=== PATIENT | male | born 1945 | race Caucasian/White ===

== ENCOUNTER 2018-02-25 09:27 | Inpatient (IN) | payer OTHER, MEDICAID ==
[~2018-02-25] VITALS: Ht 152.4 cm; Wt 61.0 kg
[2018-02-25 10:03] LABS: BASOPHILS % (AUTO) 1.5 % (0.0-2.0); EOSINOPHILS % (AUTO) 1.1 % (1.0-6.0); HEMATOCRIT 41.2 % (41-53); HEMOGLOBIN 14.1 g/dL (13.5-17.5); LYMPHOCYTES % (AUTO) 14.5 % (22.0-44.0); MEAN CORPUSCULAR HEMOGLOBIN 32.2 pg (26.0-34.0); MEAN CORPUSCULAR HGB CONC 34.1 G/dL (31.0-37.0); MEAN CORPUSCULAR VOLUME 94 fL (80-100); MONOCYTES # (AUTO) 0.7 K/uL (0.1-1.0); MONOCYTES % (AUTO) 9.5 % (2.0-9.0); NEUTROPHILS # (AUTO) 5.3 K/uL (1.8-7.7); NEUTROPHILS % (AUTO) 73.4 % (40.0-70.0); PLATELET COUNT (AUTO) 106 K/uL (150-450); RED BLOOD CELL COUNT(AUTO) 4.37 MIL/uL (4.50-5.90); RED CELL DISTRIBUTION WIDTH 15.3 % (11.5-14.5)
[2018-02-25 10:09] LABS: ANION GAP 8 mmol/L (8-16); CALCIUM, TOTAL 8.8 mg/dL (8.8-10.5); CARBON DIOXIDE 27 mmol/L (22-29); CHLORIDE 109 mmol/L (98-107); CREATININE 0.92 mg/dL (0.60-1.30); GLOMERULAR FILTR. RATE CALC > 60 mL/min (>60); GLUCOSE,RANDOM 116 mg/dL (70-110); POTASSIUM 3.9 mmol/L (3.5-5.1); SODIUM SERUM 144 mmol/L (136-145); UREA NITROGEN, BLOOD 9 mg/dL (7-18)
[2018-02-25 10:15] LABS: ALANINE AMINOTRANSFERASE 20 U/L (12-78); ALBUMIN 3.6 g/dL (3.4-5.0); ALKALINE PHOSPHATASE 84 U/L (46-116); ASPARTATE AMINOTRANSFERASE 20 U/L (15-37); BILIRUBIN,TOTAL 0.7 mg/dL (0.1-1.0)
[2018-02-25 10:29] LABS: PLATELET MORPHOLOGY COMMENT GIANT PLTS PRESENT
[2018-02-25] MEDS: PERTUSS(ACELL),DIPH,TET VAC/PF 0.5 ML VIAL IM ONE ×3 (10:37→17:25)
[2018-02-25 11:07] LABS: AMPHET/METH SCREEN,URINE NEGATIVE (NEGATIVE); BARBITURATE SCREEN, URINE NEGATIVE (NEGATIVE); BENZODIAZEPINES SCREEN,URINE NEGATIVE (NEGATIVE); CANNABINOID SCREEN,URINE POSITIVE (NEGATIVE); COCAINE SCREEN,URINE NEGATIVE (NEGATIVE); METHADONE SCREEN, URINE NEGATIVE (NEGATIVE); OPIATE SCREEN,URINE NEGATIVE (NEGATIVE); PHENCYCLIDINE SCREEN,URINE NEGATIVE (NEGATIVE)
[2018-02-25] MEDS ORDERED: SIMV-260 PO (12:18)
[2018-02-25] MEDS ORDERED: HYDR25TA PO (12:18)
[2018-02-25] MEDS ORDERED: ZOLPIDEM TARTRATE 10 MG TABLET PO PRN (12:30)
[2018-02-25] MEDS: LORazepam 2 MG TABLET PO PRN (17:02)
[2018-02-25] MEDS: HALOPERIDOL 5 MG TABLET PO PRN (17:02)
[2018-02-25] MEDS ORDERED: BACITRACIN 0.9 GM PACKET OINTMENT TP ONE (17:19)
[2018-02-25 18:47] VITALS: BP 166/80
[2018-02-25] MEDS ORDERED: PETROLATUM,WHITE 71 GM JELLY TP PRN (19:00)
[2018-02-25] MEDS ORDERED: MAGNESIUM HYDROXIDE SUSPENSION 30 ML UDCUP PO PRN (19:00)
[2018-02-25] MEDS ORDERED: LOPERAMIDE HCL 2 MG CAPSULE PO PRN (19:00)
[2018-02-25] MEDS ORDERED: MAG HYDROX/AL HYDROX/SIMETH ES 30 ML SUSPENSION UDCUP PO PRN (19:00)
[2018-02-25] MEDS ORDERED: NICOTINE 21 MG/24 HOUR PATCH TD PRN (19:00)
[2018-02-25] MEDS ORDERED: ACETAMINOPHEN 325 MG TABLET PO PRN (19:00)
[2018-02-25] MEDS ORDERED: BENZOCAINE/MENTHOL LOZENGE MM PRN (19:00)
[2018-02-25] MEDS ORDERED: ONDANSETRON HCL 4 MG TABLET PO PRN (19:00)
[2018-02-25] MEDS ORDERED: BACITRACIN 28.4 GM OINTMENT TP PRN (19:00)
[2018-02-25] MEDS ORDERED: IBUPROFEN 600 MG TABLET PO PRN (19:00)
[2018-02-25] MEDS ORDERED: ALBUTEROL SULFATE HFA 90 MCG/PUFF 8 GM INHALER IH PRN (19:00)
[2018-02-25] MEDS ORDERED: PNEUMOCOCCAL VACCINE POLYVALENT 0.5 ML VIAL [PPSV23] IM ONE (20:15)
[2018-02-26 06:39] VITALS: BP 127/64
[2018-02-26 08:00] VITALS: BP 131/65
[2018-02-26] MEDS: DOCUSATE SODIUM 100 MG CAPSULE PO SCH (08:24)
[2018-02-26 08:36] LABS: BASOPHILS % (AUTO) 1.4 % (0.0-2.0); EOSINOPHILS % (AUTO) 0.6 % (1.0-6.0); HEMATOCRIT 35.4 % (41-53); HEMOGLOBIN 12.1 g/dL (13.5-17.5); LYMPHOCYTES # (AUTO) 1.5 K/uL (1.0-4.8); LYMPHOCYTES % (AUTO) 24.9 % (22.0-44.0); MEAN CORPUSCULAR HEMOGLOBIN 32.6 pg (26.0-34.0); MEAN CORPUSCULAR HGB CONC 34.2 G/dL (31.0-37.0); MEAN CORPUSCULAR VOLUME 95 fL (80-100); MONOCYTES # (AUTO) 0.5 K/uL (0.1-1.0); NEUTROPHILS # (AUTO) 3.7 K/uL (1.8-7.7); NEUTROPHILS % (AUTO) 64.1 % (40.0-70.0); PLATELET COUNT (AUTO) 91 K/uL (150-450); RED BLOOD CELL COUNT(AUTO) 3.72 MIL/uL (4.50-5.90); RED CELL DISTRIBUTION WIDTH 15.6 % (11.5-14.5)
[2018-02-26] MEDS ORDERED: OMEPRAZOLE 20 MG CAPSULE PO SCH (09:00)
[2018-02-26 09:12] LABS: ALANINE AMINOTRANSFERASE 15 U/L (12-78); ALKALINE PHOSPHATASE 76 U/L (46-116); ANION GAP 8 mmol/L (8-16); ASPARTATE AMINOTRANSFERASE 17 U/L (15-37); BILIRUBIN,TOTAL 0.8 mg/dL (0.1-1.0); CALCIUM, TOTAL 8.4 mg/dL (8.8-10.5); CARBON DIOXIDE 27 mmol/L (22-29); CHLORIDE 108 mmol/L (98-107); CREATININE 0.69 mg/dL (0.60-1.30); GLOMERULAR FILTR. RATE CALC > 60 mL/min (>60); GLUCOSE,RANDOM 83 mg/dL (70-110); POTASSIUM 3.6 mmol/L (3.5-5.1); SODIUM SERUM 143 mmol/L (136-145); THYROID STIMULATING HORMONE 1.43 uIU/mL (0.36-3.74); UREA NITROGEN, BLOOD 13 mg/dL (7-18)
[2018-02-26] MEDS: BACITRACIN 28.4 GM OINTMENT TP SCH (10:11)
[2018-02-26] MEDS: QUEtiapine FUMARATE 25 MG TABLET PO SCH ×2 (11:37→16:13)
[2018-02-26 16:00] VITALS: BP 181/100
[2018-02-26] MEDS: CloNIDine HCL 0.1 MG TABLET PO PRN (16:13)
[2018-02-26 17:12] VITALS: BP 149/70
[2018-02-27 05:58] VITALS: BP 156/86
[2018-02-27 08:01] VITALS: BP 145/84
[2018-02-27] MEDS: QUEtiapine FUMARATE 25 MG TABLET PO SCH ×2 (08:05→16:49)
[2018-02-27] MEDS: SIMVASTATIN 10 MG TABLET PO SCH (08:05)
[2018-02-27] MEDS: HYDROCHLOROTHIAZIDE 25 MG TABLET PO SCH (08:06)
[2018-02-27] MEDS: DOCUSATE SODIUM 100 MG CAPSULE PO SCH (08:06)
[2018-02-27] MEDS: MULTIVITAMINS WITH MINERALS, THERAPEUTIC TABLET PO SCH (08:06)
[2018-02-27] MEDS: FAMOTIDINE 20 MG TABLET PO SCH (08:06)
[2018-02-27] MEDS: BACITRACIN 28.4 GM OINTMENT TP SCH (08:15)
[2018-02-27 10:23] LABS: CHOL/HDL RATIO 3.1 (4.2-7.3)
[2018-02-27 16:00] VITALS: BP 142/83
[2018-02-28 06:10] VITALS: BP 142/88
[2018-02-28 07:46] LABS: BASOPHILS % (AUTO) 2.2 % (0.0-2.0); EOSINOPHILS % (AUTO) 2.8 % (1.0-6.0); HEMATOCRIT 39.5 % (41-53); HEMOGLOBIN 13.3 g/dL (13.5-17.5); LYMPHOCYTES # (AUTO) 1.4 K/uL (1.0-4.8); LYMPHOCYTES % (AUTO) 24.2 % (22.0-44.0); MEAN CORPUSCULAR HEMOGLOBIN 32.3 pg (26.0-34.0); MEAN CORPUSCULAR HGB CONC 33.8 G/dL (31.0-37.0); MEAN CORPUSCULAR VOLUME 96 fL (80-100); MONOCYTES # (AUTO) 0.6 K/uL (0.1-1.0); MONOCYTES % (AUTO) 11.4 % (2.0-9.0); NEUTROPHILS # (AUTO) 3.3 K/uL (1.8-7.7); NEUTROPHILS % (AUTO) 59.4 % (40.0-70.0); PLATELET COUNT (AUTO) 108 K/uL (150-450); RED BLOOD CELL COUNT(AUTO) 4.13 MIL/uL (4.50-5.90); RED CELL DISTRIBUTION WIDTH 15.6 % (11.5-14.5)
[2018-02-28] MEDS: MULTIVITAMINS WITH MINERALS, THERAPEUTIC TABLET PO SCH (08:04)
[2018-02-28] MEDS: FAMOTIDINE 20 MG TABLET PO SCH (08:04)
[2018-02-28] MEDS: SIMVASTATIN 10 MG TABLET PO SCH (08:04)
[2018-02-28] MEDS: BACITRACIN 28.4 GM OINTMENT TP SCH (08:04)
[2018-02-28] MEDS: DOCUSATE SODIUM 100 MG CAPSULE PO SCH (08:04)
[2018-02-28] MEDS: HYDROCHLOROTHIAZIDE 25 MG TABLET PO SCH (08:04)
[2018-02-28] MEDS: QUEtiapine FUMARATE 25 MG TABLET PO SCH ×2 (08:04→16:02)
[2018-02-28 08:57] VITALS: BP 135/84
[2018-02-28 09:26] LABS: PLATELET MORPHOLOGY COMMENT GIANT PLTS PRESENT
[2018-02-28 16:00] VITALS: BP 130/69
[2018-03-01 01:05] VITALS: BP 151/97
[2018-03-01] MEDS: MULTIVITAMINS WITH MINERALS, THERAPEUTIC TABLET PO SCH (08:10)
[2018-03-01] MEDS: FAMOTIDINE 20 MG TABLET PO SCH (08:10)
[2018-03-01] MEDS: HYDROCHLOROTHIAZIDE 25 MG TABLET PO SCH (08:10)
[2018-03-01] MEDS: QUEtiapine FUMARATE 25 MG TABLET PO SCH ×2 (08:10→17:05)
[2018-03-01] MEDS: DOCUSATE SODIUM 100 MG CAPSULE PO SCH (08:10)
[2018-03-01] MEDS: SIMVASTATIN 10 MG TABLET PO SCH (08:10)
[2018-03-01] MEDS: BACITRACIN 28.4 GM OINTMENT TP SCH (08:58)
[2018-03-01 10:21] VITALS: BP 147/87
[2018-03-01 16:11] VITALS: BP 146/88
[2018-03-02 06:09] VITALS: BP 133/69
[2018-03-02 08:02] VITALS: BP 134/78
[2018-03-02] MEDS: HYDROCHLOROTHIAZIDE 25 MG TABLET PO SCH (08:52)
[2018-03-02] MEDS: MULTIVITAMINS WITH MINERALS, THERAPEUTIC TABLET PO SCH (08:52)
[2018-03-02] MEDS: SIMVASTATIN 10 MG TABLET PO SCH (08:52)
[2018-03-02] MEDS: FAMOTIDINE 20 MG TABLET PO SCH (08:52)
[2018-03-02] MEDS: DOCUSATE SODIUM 100 MG CAPSULE PO SCH (08:52)
[2018-03-02] MEDS: QUEtiapine FUMARATE 25 MG TABLET PO SCH ×2 (08:52→16:51)
[2018-03-02 16:50] VITALS: BP 150/93
[2018-03-03 00:46] VITALS: BP 139/92
[2018-03-03] MEDS: HYDROCHLOROTHIAZIDE 25 MG TABLET PO SCH (08:30)
[2018-03-03] MEDS: SIMVASTATIN 10 MG TABLET PO SCH (08:30)
[2018-03-03] MEDS: DOCUSATE SODIUM 100 MG CAPSULE PO SCH (08:30)
[2018-03-03] MEDS: MULTIVITAMINS WITH MINERALS, THERAPEUTIC TABLET PO SCH (08:30)
[2018-03-03] MEDS: QUEtiapine FUMARATE 25 MG TABLET PO SCH ×2 (08:30→16:45)
[2018-03-03] MEDS: FAMOTIDINE 20 MG TABLET PO SCH (08:30)
[2018-03-03 09:00] VITALS: BP 138/66
[2018-03-03 16:17] VITALS: BP 135/88
[2018-03-04 06:21] VITALS: BP 181/100
[2018-03-04] MEDS: CloNIDine HCL 0.1 MG TABLET PO PRN (06:28)
[2018-03-04 07:21] VITALS: BP 142/86
[2018-03-04] MEDS: QUEtiapine FUMARATE 25 MG TABLET PO SCH ×2 (08:45→17:11)
[2018-03-04] MEDS: MULTIVITAMINS WITH MINERALS, THERAPEUTIC TABLET PO SCH (08:45)
[2018-03-04] MEDS: SIMVASTATIN 10 MG TABLET PO SCH (08:46)
[2018-03-04] MEDS: FAMOTIDINE 20 MG TABLET PO SCH (08:46)
[2018-03-04] MEDS: HYDROCHLOROTHIAZIDE 25 MG TABLET PO SCH (08:46)
[2018-03-04] MEDS: DOCUSATE SODIUM 100 MG CAPSULE PO SCH (08:46)
[2018-03-04] MEDS: LISINOPRIL 10 MG TABLET PO SCH (09:17)
[2018-03-04 09:33] VITALS: BP 141/89
[2018-03-04 16:23] VITALS: BP 140/83
[2018-03-05 00:11] VITALS: BP 140/85
[2018-03-05 08:20] VITALS: BP 161/88
[2018-03-05] MEDS: MULTIVITAMINS WITH MINERALS, THERAPEUTIC TABLET PO SCH (08:20)
[2018-03-05] MEDS: FAMOTIDINE 20 MG TABLET PO SCH (08:20)
[2018-03-05] MEDS: HYDROCHLOROTHIAZIDE 25 MG TABLET PO SCH (08:20)
[2018-03-05] MEDS: LISINOPRIL 10 MG TABLET PO SCH (08:20)
[2018-03-05] MEDS: QUEtiapine FUMARATE 25 MG TABLET PO SCH ×2 (08:20→16:13)
[2018-03-05] MEDS: DOCUSATE SODIUM 100 MG CAPSULE PO SCH (08:20)
[2018-03-05] MEDS: SIMVASTATIN 10 MG TABLET PO SCH (08:20)
[2018-03-05 09:30] VITALS: BP 133/79
[2018-03-05 16:10] VITALS: BP 144/83
[2018-03-06 00:15] VITALS: BP 133/80
[2018-03-06 08:00] VITALS: BP 140/80
[2018-03-06] MEDS: LISINOPRIL 10 MG TABLET PO SCH (08:45)
[2018-03-06] MEDS: HYDROCHLOROTHIAZIDE 25 MG TABLET PO SCH (08:45)
[2018-03-06] MEDS: QUEtiapine FUMARATE 25 MG TABLET PO SCH ×2 (08:45→16:33)
[2018-03-06] MEDS: FAMOTIDINE 20 MG TABLET PO SCH (08:45)
[2018-03-06] MEDS: DOCUSATE SODIUM 100 MG CAPSULE PO SCH (08:45)
[2018-03-06] MEDS: MULTIVITAMINS WITH MINERALS, THERAPEUTIC TABLET PO SCH (08:45)
[2018-03-06] MEDS: SIMVASTATIN 10 MG TABLET PO SCH (08:45)
[2018-03-06 16:25] VITALS: BP 133/73
[2018-03-07 02:36] VITALS: BP 134/79
[2018-03-07 08:00] VITALS: BP 131/84
[2018-03-07] MEDS: FAMOTIDINE 20 MG TABLET PO SCH (08:18)
[2018-03-07] MEDS: DOCUSATE SODIUM 100 MG CAPSULE PO SCH (08:18)
[2018-03-07] MEDS: HYDROCHLOROTHIAZIDE 25 MG TABLET PO SCH (08:19)
[2018-03-07] MEDS: SIMVASTATIN 10 MG TABLET PO SCH (08:19)
[2018-03-07] MEDS: LISINOPRIL 10 MG TABLET PO SCH (08:19)
[2018-03-07] MEDS: QUEtiapine FUMARATE 25 MG TABLET PO SCH ×2 (08:19→16:18)
[2018-03-07] MEDS: MULTIVITAMINS WITH MINERALS, THERAPEUTIC TABLET PO SCH (08:19)
[2018-03-07] MEDS ORDERED: BACITRACIN 28.4 GM OINTMENT TP SCH (09:00)
[2018-03-07 16:03] VITALS: BP 124/72
[2018-03-07 23:57] VITALS: BP 180/99
[2018-03-08] MEDS: CloNIDine HCL 0.1 MG TABLET PO PRN (00:14)
[2018-03-08 01:14] VITALS: BP 129/70
[2018-03-08 08:22] VITALS: BP 134/83
[2018-03-08] MEDS: DOCUSATE SODIUM 100 MG CAPSULE PO SCH (08:57)
[2018-03-08] MEDS: FAMOTIDINE 20 MG TABLET PO SCH (08:57)
[2018-03-08] MEDS: MULTIVITAMINS WITH MINERALS, THERAPEUTIC TABLET PO SCH (08:57)
[2018-03-08] MEDS: LISINOPRIL 10 MG TABLET PO SCH (08:57)
[2018-03-08] MEDS: SIMVASTATIN 10 MG TABLET PO SCH (08:58)
[2018-03-08] MEDS: QUEtiapine FUMARATE 25 MG TABLET PO SCH ×2 (09:00→16:25)
[2018-03-08] MEDS: HYDROCHLOROTHIAZIDE 25 MG TABLET PO SCH (09:01)
[2018-03-08 16:26] VITALS: BP 121/78
[2018-03-09 00:14] VITALS: BP 110/71
[2018-03-09] MEDS: LORazepam 2 MG TABLET PO PRN (01:13)
[2018-03-09] MEDS: MULTIVITAMINS WITH MINERALS, THERAPEUTIC TABLET PO SCH (08:15)
[2018-03-09] MEDS: SIMVASTATIN 10 MG TABLET PO SCH (08:15)
[2018-03-09] MEDS: LISINOPRIL 10 MG TABLET PO SCH (08:15)
[2018-03-09] MEDS: QUEtiapine FUMARATE 25 MG TABLET PO SCH ×2 (08:15→16:24)
[2018-03-09] MEDS: HYDROCHLOROTHIAZIDE 25 MG TABLET PO SCH (08:15)
[2018-03-09] MEDS: FAMOTIDINE 20 MG TABLET PO SCH (08:15)
[2018-03-09] MEDS: DOCUSATE SODIUM 100 MG CAPSULE PO SCH (08:15)
[2018-03-09 08:26] VITALS: BP 138/83
[2018-03-09 16:19] VITALS: BP 140/84
[2018-03-10 00:04] VITALS: BP 148/85
[2018-03-10] MEDS: MULTIVITAMINS WITH MINERALS, THERAPEUTIC TABLET PO SCH (08:26)
[2018-03-10] MEDS: LISINOPRIL 10 MG TABLET PO SCH (08:26)
[2018-03-10] MEDS: SIMVASTATIN 10 MG TABLET PO SCH (08:26)
[2018-03-10] MEDS: FAMOTIDINE 20 MG TABLET PO SCH (08:26)
[2018-03-10] MEDS: QUEtiapine FUMARATE 25 MG TABLET PO SCH ×2 (08:26→17:02)
[2018-03-10] MEDS: HYDROCHLOROTHIAZIDE 25 MG TABLET PO SCH (08:26)
[2018-03-10] MEDS: DOCUSATE SODIUM 100 MG CAPSULE PO SCH (08:27)
[2018-03-10 08:31] VITALS: BP 146/83
[2018-03-10 10:30] VITALS: BP 107/70
[2018-03-10 16:18] VITALS: BP 128/80
[2018-03-11 00:04] VITALS: BP 131/74
[2018-03-11 08:45] VITALS: BP 123/77
[2018-03-11] MEDS: HALOPERIDOL 5 MG TABLET PO PRN (09:17)
[2018-03-11] MEDS: HYDROCHLOROTHIAZIDE 25 MG TABLET PO SCH (09:17)
[2018-03-11] MEDS: QUEtiapine FUMARATE 25 MG TABLET PO SCH ×2 (09:17→16:13)
[2018-03-11] MEDS: MULTIVITAMINS WITH MINERALS, THERAPEUTIC TABLET PO SCH (09:17)
[2018-03-11] MEDS: DOCUSATE SODIUM 100 MG CAPSULE PO SCH (09:17)
[2018-03-11] MEDS: LORazepam 2 MG TABLET PO PRN (09:18)
[2018-03-11] MEDS: SIMVASTATIN 10 MG TABLET PO SCH (09:18)
[2018-03-11] MEDS: LISINOPRIL 10 MG TABLET PO SCH (09:18)
[2018-03-11] MEDS: FAMOTIDINE 20 MG TABLET PO SCH (09:19)
[2018-03-11 16:04] VITALS: BP 129/77
[2018-03-11] MEDS ORDERED: BENZOCAINE/MENTHOL LOZENGE MM PRN (18:15)
[2018-03-12] MEDS: SIMVASTATIN 10 MG TABLET PO SCH (08:29)
[2018-03-12] MEDS: DOCUSATE SODIUM 100 MG CAPSULE PO SCH (08:29)
[2018-03-12] MEDS: LISINOPRIL 10 MG TABLET PO SCH (08:29)
[2018-03-12 08:30] VITALS: BP 148/94
[2018-03-12] MEDS: MULTIVITAMINS WITH MINERALS, THERAPEUTIC TABLET PO SCH (08:30)
[2018-03-12] MEDS: FAMOTIDINE 20 MG TABLET PO SCH (08:30)
[2018-03-12] MEDS: QUEtiapine FUMARATE 25 MG TABLET PO SCH ×2 (08:30→16:16)
[2018-03-12] MEDS: HYDROCHLOROTHIAZIDE 25 MG TABLET PO SCH (08:30)
[2018-03-12 10:00] VITALS: BP 116/70
[2018-03-12 16:16] VITALS: BP 114/72
[2018-03-13 02:22] VITALS: BP 138/92
[2018-03-13 08:00] VITALS: BP 119/80
[2018-03-13] MEDS: MULTIVITAMINS WITH MINERALS, THERAPEUTIC TABLET PO SCH (08:16)
[2018-03-13] MEDS: SIMVASTATIN 10 MG TABLET PO SCH (08:16)
[2018-03-13] MEDS: QUEtiapine FUMARATE 25 MG TABLET PO SCH ×2 (08:16→16:55)
[2018-03-13] MEDS: FAMOTIDINE 20 MG TABLET PO SCH (08:16)
[2018-03-13] MEDS: DOCUSATE SODIUM 100 MG CAPSULE PO SCH (08:16)
[2018-03-13] MEDS: LISINOPRIL 10 MG TABLET PO SCH (08:16)
[2018-03-13] MEDS: HYDROCHLOROTHIAZIDE 25 MG TABLET PO SCH (08:16)
[2018-03-13 16:09] VITALS: BP 121/72
[2018-03-14 00:33] VITALS: BP 138/85
[2018-03-14 08:15] VITALS: BP 150/88
[2018-03-14] MEDS: MULTIVITAMINS WITH MINERALS, THERAPEUTIC TABLET PO SCH (08:18)
[2018-03-14] MEDS: FAMOTIDINE 20 MG TABLET PO SCH (08:18)
[2018-03-14] MEDS: SIMVASTATIN 10 MG TABLET PO SCH (08:18)
[2018-03-14] MEDS: QUEtiapine FUMARATE 25 MG TABLET PO SCH (08:18)
[2018-03-14] MEDS: HYDROCHLOROTHIAZIDE 25 MG TABLET PO SCH (08:18)
[2018-03-14] MEDS: DOCUSATE SODIUM 100 MG CAPSULE PO SCH (08:18)
[2018-03-14] MEDS: LISINOPRIL 10 MG TABLET PO SCH (08:19)
[2018-03-14] MEDS ORDERED: QUET50TA PO (09:36)
[2018-03-14] MEDS ORDERED: LISI10TA PO (09:39)
[2018-03-14] MEDS ORDERED: DSSL PO (09:39)
[2018-03-14] MEDS ORDERED: FAMO20 PO (09:39)
== END 2018-03-14 10:25 | disposition home or self-care (01) | DRG 885 ==
LOC: EEVIPCON 09:29 → EMS 09:29 → B3A 17:34 → B2S 03-03 10:16 → B2X 03-04 14:56
PROVIDERS: ADMIT Psychiatry & Neurology Child & Adolescent Psychiatry; ATTEND Psychiatry & Neurology Child & Adolescent Psychiatry
DX: F29 Unspecified psychosis not due to a substance or known physiological condition (principal); D69.6 Thrombocytopenia, unspecified; J44.9 Chronic obstructive pulmonary disease, unspecified; E78.5 Hyperlipidemia, unspecified; F12.10 Cannabis abuse, uncomplicated; I10 Essential (primary) hypertension; K21.9 Gastro-esophageal reflux disease without esophagitis; F17.200 Nicotine dependence, unspecified, uncomplicated; L08.9 Local infection of the skin and subcutaneous tissue, unspecified; X58.XXXA Exposure to other specified factors, initial encounter; M25.561 Pain in right knee; M19.90 Unspecified osteoarthritis, unspecified site; S00.31XA Abrasion of nose, initial encounter; S51.811A Laceration without foreign body of right forearm, initial encounter; F41.9 Anxiety disorder, unspecified; S51.812A Laceration without foreign body of left forearm, initial encounter; S80.219A Abrasion, unspecified knee, initial encounter; Z91.19 Patient's noncompliance with other medical treatment and regimen; Z28.21 Immunization not carried out because of patient refusal; Z71.6 Tobacco abuse counseling; Z71.51 Drug abuse counseling and surveillance of drug abuser; Z79.899 Other long term (current) drug therapy; Y93.89 Activity, other specified; Y92.89 Other specified places as the place of occurrence of the external cause; Y99.8 Other external cause status
CPT/HCPCS: 80074; 84439; 84443; 90471; 90715; 99285; G0480

== ENCOUNTER 2018-02-26 14:07 | Emergency (ER) | payer OTHER ==
[~2018-02-26] VITALS: Ht 162.6 cm; Wt 65.9 kg
[~2018-02-26 14:07] MED LIST: HYDR25TA PO; SIMV-260 PO
[2018-02-26] MEDS ORDERED: CEPHALEXIN MONOHYDRATE 500 MG CAPSULE PO ONE (15:00)
[2018-02-26] MEDS ORDERED: BACITRACIN 0.9 GM PACKET OINTMENT TP ONE (15:00)
[2018-02-26 15:15] VITALS: BP 171/82
== END 2018-02-26 15:31 | disposition home or self-care (01) ==
LOC: EMS 14:08
DX: S61.411D Laceration without foreign body of right hand, subsequent encounter (principal); S61.412D Laceration without foreign body of left hand, subsequent encounter; F29 Unspecified psychosis not due to a substance or known physiological condition; F15.90 Other stimulant use, unspecified, uncomplicated; X58.XXXD Exposure to other specified factors, subsequent encounter
CPT/HCPCS: 99283

== ENCOUNTER → 2018-03-20 | Outpatient (CLI) | payer OTHER ==
[~2018-03-20] MED LIST changes: +DSSL PO; +FAMO20 PO; +LISI10TA PO; +QUET50TA PO
[2018-03-21 10:08] LABS: FOLATE SERUM 11.6 ng/mL (5.4-)
== END | disposition home or self-care (01) ==
LOC: LABMN 12:00
PROVIDERS: ATTEND Psychiatry & Neurology Psychiatry
DX: F29 Unspecified psychosis not due to a substance or known physiological condition (principal)
CPT/HCPCS: 82607; 82746; 84443

== ENCOUNTER → 2020-12-30 | Outpatient (CLI) | payer MEDICARE, OTHER ==
[~2020-12-30] MED LIST changes: -HYDR25TA PO; +HYDR25TA2 PO
[2020-12-30 16:26] LABS: HEMOGLOBIN A1C 5.2 % (3.8-5.6)
[2020-12-30 16:43] LABS: CHOL/HDL RATIO 3.3 (4.2-7.3)
== END | disposition home or self-care (01) ==
LOC: LABPV 14:28
PROVIDERS: ATTEND Psychiatry & Neurology Psychiatry
DX: F20.9 Schizophrenia, unspecified (principal); Z79.899 Other long term (current) drug therapy
CPT/HCPCS: 82947; 83036